=== PATIENT | female | born 1975 ===

== ENCOUNTER 2025-04-20 07:45 | Inpatient (IN) | payer OTHER ==
[~2025-04-20] VITALS: Ht 165.1 cm; Wt 84.4 kg
[2025-04-20 08:48] LABS: PH,URINE 5.5 (5.0-8.0); URINE APPEARANCE Clear; URINE BILIRRUBIN Negative (NEGATIVE); URINE BLOOD Large; URINE COLOR Yellow; URINE GLUCOSE Negative (NEGATIVE); URINE KETONE Negative (NEGATIVE); URINE LEUKOCYTE Trace; URINE NITRATE Negative; URINE PROTEIN Negative (NEGATIVE); URINE UROBILINOGEN 0.2 E.U./dl
[2025-04-20 08:49] LABS: URINE BACTERIA 165.1 uL (0.0-1933); URINE RBC 26.8 uL (0.0-20.8); URINE WBC 4.9 uL (0.0-23.2)
[2025-04-20 08:50] LABS: BASO % 0.6 % (0.1-1.2); EOS # 0.05 (0.04-0.54); HEMATOCRIT 43.5 % (34.1-44.9); HEMOGLOBIN 14.5 g/dL (11.2-15.7); LYMPH # 1.83 (1.18-3.74); MEAN CORPUSCULAR HEMOGLOBIN 28.8 pg (25.6-32.2); MONO % 8.3 % (4.7-12.5); NEUT # 2.49 (1.56-6.13); NEUT % 51.9 % (34.0-71.1); PLATELET COUNT 297 K/uL (163-369); RED BLOOD COUNT 5.04 M/uL (3.93-5.22); RED CELL DISTRIBUTION WIDTH 12.9 % (11.6-14.4)
[2025-04-20 08:51] LABS: URINE CAST 0.14 uL (0.0-1.40)
[2025-04-20] MEDS ORDERED: LIPITOR20 MG PO (08:56)
[2025-04-20] MEDS ORDERED: MEGESTROL ACETA40 MG PO (08:57)
[2025-04-20 09:01] VITALS: BP 109/70
[2025-04-20 09:44] LABS: RH POSITIVE
[2025-04-20 09:46] LABS: BILIRUBIN TOTAL 0.34 mg/dL (0.3-1.2); CALCIUM 9.8 mg/dL (8.5-10.1); CREATININE SERUM 0.81 mg/dL (0.55-1.02); GFR 75.15; GLOBULINA 3.9 G/DL (2.4-3.5); POTASSIUM 4.48 mEq/L (3.5-5.1); TOTAL PROTEIN 7.9 gm/dL (6.4-8.2)
[2025-04-20 09:50] LABS: INR 1.1; PARTIAL THROMBOPLASTIN TIME 25.2 SECONDS (22.0-34.0); PROTHROMBIN TIME 11.9 SECONDS (9.0-11.5)
[2025-04-25] MEDS ORDERED: CEFAZOLIN SODIUM 1,000 MG VIAL ONE (13:03)
[2025-04-25] MEDS ORDERED: THROMBIN,HU/FIBRINOGEN/CALCIUM 10 ML SYRINGE TOP ONE (15:17)
[2025-04-25] MEDS ORDERED: CHLORHEXIDINE GLUCONATE 120 ML BOTTLE TOP NR (17:00)
[2025-04-25] MEDS ORDERED: ONDANSETRON HCL 2 MG/ML VIAL IV PRN (17:00)
[2025-04-25] MEDS ORDERED: MORPHINE SULFATE 4 MG/ML CARTRIDGE IV PRN (17:00)
[2025-04-25] MEDS ORDERED: RINGERS SOLUTION,LACTATED 1,000 ML IV SCH (17:00)
[2025-04-25] MEDS ORDERED: MORPHINE SULFATE 4 MG/ML VIAL IV ONE ×2 (17:25→18:40)
[2025-04-25] MEDS ORDERED: ACETAMINOPHEN 325 MG TABLET PO SCH (18:00)
[2025-04-25] MEDS ORDERED: KETOROLAC TROMETHAMINE 30 MG VIAL IV NR (18:00)
[2025-04-25] MEDS ORDERED: KETOROLAC TROMETHAMINE 30 MG VIAL ONE (20:42)
[2025-04-25] MEDS ORDERED: FAMOTIDINE/PF 20 MG/2 ML VIAL ONE (20:42)
[2025-04-25] MEDS ORDERED: FAMOTIDINE/PF 20 MG/2 ML VIAL IV SCH (21:00)
[2025-04-25 22:30] VITALS: BP 145/83
[2025-04-26] MEDS ORDERED: KETOROLAC TROMETHAMINE 30 MG VIAL IV SCH
[2025-04-26 01:44] VITALS: BP 140/80
[2025-04-26 05:18] LABS: BASO % 0.3 % (0.1-1.2); EOS # 0.01 (0.04-0.54); EOS % 0.1 % (0.7-7.0); HEMATOCRIT 38.2 % (34.1-44.9); HEMOGLOBIN 12.9 g/dL (11.2-15.7); LYMPH # 1.18 (1.18-3.74); MEAN CORPUSCULAR HEMOGLOBIN 29.5 pg (25.6-32.2); MONO # 0.91 (0.24-0.82); MONO % 7.7 % (4.7-12.5); NEUT # 9.65 (1.56-6.13); NEUT % 81.7 % (34.0-71.1); PLATELET COUNT 324 K/uL (163-369); RED BLOOD COUNT 4.37 M/uL (3.93-5.22); RED CELL DISTRIBUTION WIDTH 12.7 % (11.6-14.4)
[2025-04-26 05:49] LABS: ALBUMIN 3.3 gm/dL (3.4-5.0); BILIRUBIN TOTAL 0.58 mg/dL (0.3-1.2); CALCIUM 8.7 mg/dL (8.5-10.1); CREATININE SERUM 0.78 mg/dL (0.55-1.02); GFR 78.5; GLOBULINA 3.4 G/DL (2.4-3.5); POTASSIUM 4.59 mEq/L (3.5-5.1); TOTAL PROTEIN 6.7 gm/dL (6.4-8.2)
[2025-04-26] MEDS ORDERED: OxyCODONE HCL 5 MG TABLET (ROXICODONE) PO PRN (06:00)
[2025-04-26] MEDS ORDERED: SIMETHICONE 125 MG CAPSULE PO SCH (09:00)
[2025-04-26] MEDS ORDERED: IBUprofen 400 MG TABLET PO SCH (09:00)
[2025-04-26 09:01] VITALS: BP 141/78
[2025-04-26 15:59] VITALS: BP 116/74
[2025-04-27 01:11] VITALS: BP 121/73
[2025-04-27 08:00] VITALS: BP 111/69
== END 2025-04-27 09:44 | disposition home or self-care (01) | DRG 743 ==
LOC: SURH 04-25 07:45 → O/R 04-25 08:47 → OB/GYN 04-25 16:41
PROVIDERS: ADMIT Obstetrics & Gynecology; ATTEND Obstetrics & Gynecology
PROC: 0UT70ZZ Resection of Bilateral Fallopian Tubes, Open Approach (ICD-10-PCS; 2025-04-25)
PROC: 0UT90ZZ Resection of Uterus, Open Approach (ICD-10-PCS; principal; 2025-04-25 08:40)
DX: D25.0 Submucous leiomyoma of uterus (principal); D25.1 Intramural leiomyoma of uterus; D25.2 Subserosal leiomyoma of uterus; N80.03 Adenomyosis of the uterus